=== PATIENT | male | born 1990 | race Caucasian/White ===

== ENCOUNTER 2025-07-09 18:36 | Emergency (ER) | payer BC, SELFPAY ==
--- OUTSIDE RECORDS SUMMARY | 2025-07-08 14:30 | XMS_ITS | Encounter Summary ---
Author Organization [place] [address] Care Team Providers Care Data Warehousing Architect Name Role Phone Chris Rawls DO Primary Care Provider [phone] Reason for Referral * Ultrasound (Emergency) - Closed Specialty Diagnoses / Procedures Referred By Ana davenport Referred To Contact Radiology Diagnoses Scrotal swelling Procedures US SCROTUM AND TESTICLES Chris Rawls DO [address] [place] [address] Phone: tel: fax: Referral ID Status Reason Start Date Expiration Date Visits Re quested Visits Authorized [id number] Closed 07/08/2025 07/08/2026 1 1 Reason for Visit * Reason Comments Groin Swelling Encounter Details Date Type Department Care Team (Late st Contact Info) Description 07/08/2025 2:30 PM EDT Office Visit [facility] [address] [place] [address] Chris Rawls DO [address] [place] [phone] Scrotal swelling (Primary Dx); Pain of left thigh; Screening for cholesterol level; Screening for diabetes mellitus (DM); Annual physical exam; Chronic bilateral low back pain without sciatica Social History Tobacco Use Types Packs/Day Years Used Date Smoking Tobacco: Every Day Smokeless Tobacco: Never Tobacco Cessation:Ready to Q uit: No; Counseling Given: Not Answered Comments:Vape Passive Exposure Comments:Vape PHQ-2 Answer Date Recorded PHQ-2 Total Score 0 04/12/2025 Sex and Gender Information Value Date Recorded Sex Assigned at Not on file Legal Sex Male 3:27 PM EDT Gender Identity Not on file Sexual Orientation Not on file documented as of this encounter Last Filed Vital Signs Vital Sign Reading Time Taken Comments Blood Pressure 128/66 07/08/2025 2:57 PM EDT Pulse - - Temperature - - Respiratory Rate - - Oxygen Saturation - - Inhaled Oxygen Concentration - - Weight 95.3 kg (210 lb) 07/08/2025 2:57 PM EDT Height 177.8 cm (5' 10 ) 07/08/2025 2:57 PM EDT Body Mass Index 30.13 07/08/2025 2:57 PM EDT documented in this encounter Functional Status * Is the person deaf or does he/she have serious difficulty hearing? Answer Date of Assessment Author No 04/12/2025 8:18 AM Carline Herrmann MA * Is the person blind or does he/she have serious difficulty seeing even when wearing glasses? Answer Date of Assessment Author No 04/12/2025 8:18 AM EDCarline Schwarz MA * Does this person have serious difficulty walking or climbing stairs? Answer Date of Assessment Author No 04/12/2025 8:18 AM Carline Herrmann MA * Does this person have difficulty dressing or bathing? Answer Date of Assessment Author No 04/12/2025 8:18 AM Carline Herrmann MA * Because of a physical, mental or emotional condition, does this person have difficulty doing errands alone such as visiting a doctor's office or shopping? Answer Date of Assessment Author No 04/12/2025 8:18 AM Carline Herrmann MA documented as of this encounter Mental Status * Because of a physical, mental or emotional condition, does this person have serious difficulty concentrating, remembering or making decisions? Answer Entry Date Author No 04/12/2025 8:18 AM Carline Herrmann MA documented in this encounter Ordered Prescriptions Prescription Sig Dispense Quantity Refills Last Filled Start Date End Date methylPREDNISolon e (MEDROL DOSPACK) 4 mg Oral Tablets, Dose PackIndications:P ain of left thigh See package instructions 21 Tablet 07/08/2025 documented in this encounter Progress Notes * Chris Rawls DO - 07/08/2025 2:30 PM EDT Vitals: 07/08/25 1457 Weight: 210 lb (95.3 kg) Height: 5' 10 (1.778 m) Body mass index is 30.13 kg/m??. SUBJECTIVE: Chief Complaint Patient presents with Groin Swelling HPI: Patient states I noticed swelling in groin area and leg swelling 4 days ago. Denies pain. No obvious trauma Also presents for left thigh pain. No obvious trauma I have recommended that this patient have a flu shot and immunization for all vaccines but he declines at this time. I have discussed the risks and benefits of this examination with him. The patient verbalizes understanding. Review of Systems Constitutional: Negative for fatigue and fever. Respiratory: Negative for cough and shortness of breath. Cardiovascular: Negative for chest pain. Gastrointestinal: Negative for abdominal pain, diarrhea, nausea and vomiting. Genitourinary: Negative for dysuria. Musculoskeletal: Negative for back pain. Skin: Negative for rash. Neurological: Negative for headaches. Psychiatric/Behavioral: The patient is not nervous/anxious. OBJECTIVE: Physical Exam Constitutional: Appearance: Normal appearance. Cardiovascular: Rate and Rhythm: Normal rate and regular rhythm. Heart sounds: Normal heart sounds. No murmur heard. Pulmonary: Effort: Pulmonary effort is normal. No respiratory distress. Breath sounds: Normal breath sounds. Abdominal: General: There is no distension. Palpations: Abdomen is soft. Genitourinary: Comments: Swelling noted to right side of scrotum Neurological: Mental Status: He is alert and oriented to person, place, and time. Psychiatric: Mood and Affect: Mood normal. Behavior: Behavior normal. Assessment & Plan Scrotal swelling Orders: US SCROTUM AND TESTICLES; Future Pain of left thigh Orders: methylPREDNISolone (MEDROL DOSPACK) 4 mg Oral Tablets, Dose Pack; See package instructions Above problems were discussed with patient and all are stable except otherwise noted. Continue medications as prior. Refills done as requested. Blood work done. Will adjust medications by phone as needed based on lab results and as noted. Follow up for any changes and as directed Educated patient regarding the care plan and instructions listed on the After Visit Summary [AVS] for today's visit. The patient verbalized full understanding of the care plan and instructions given on the AVS for today's visit. documented in this encounter Miscellaneous Notes * Addendum Note - Chris Rawls DO - 07/08/2025 2:30 PM EDTAddended by: CHRIS RAWLS on: 07/08/2025 03:34 PM Modules accepted: Orders documented in this encounter Plan of Treatment Not on file documented as of this encounter Goals Goal Patient Goal Type Associated Problems Recent Progress Patient-Stated? Author Maintain a healthy diet, exercise regularly and maintain an ideal body weight General No Cici Bee RMA Stay Tobacco Free Lifestyle No Chris Rawls DO documented as of this encounter Procedures Procedure Name Priority Date/Time Associated Diagnosis Comments BILIRUBIN DIRECT Routine 07/08/2025 3:43 PM EDT Screening for cholesterol level VITAMIN B12/ FOLIC ACID Routine 07/08/2025 3:43 PM EDT Annual physical exam Chronic bilateral low back pain without sciatica TSH REFLEX TO FT4 Routine 07/08/2025 3:4 3 PM EDT Annual physical exam Chronic bilateral low back pain without sciatica VITAMIN D 25 HYDROXY Routine 07/08/2025 3:43 PM EDT Annual physical exam Chronic bilateral low back pain without sciatica CBC WITH DIFF Routine 07/08/2025 3:43 PM EDT Annual physical exam Chronic bilateral low back pain without sciatica HEMOGLOBIN A1C Routine 07/08/2025 3:43 PM EDT Annual physical exam Chronic bilateral low back pain without sciatica LIPID SCREEN Routine 07/08/2025 3:43 PM EDT Annual physical exam Chronic bilateral low back pain without sciatica COMPREHENSIVE METABOLIC PANEL Routine 07/08/2025 3:43 PM EDT Annual physical exam Chronic bilateral low back pain without sciatica documented in this encounter Results * US SCROTUM AND TESTICLES (07/08/2025 4:55 PM EDT) Anatomical Region Laterality Modality Testes Ultrasound 07/08/2025 4:55 PM EDT Impressions 07/08/2025 5:22 PM EDT Mild scrotal wall thickening/edema nonspecific. - Note: Radiology results need to be interpreted within a comprehensive clinical context. If you have questions about the radiology report, please contact the office of the ordering clinician. Narrative 07/08/2025 5:22 PM EDT US SCROTUM AND TESTICLES: 07/08/2025 4:55 PM CLINICAL HISTORY: N50.89-Other specified disorders of the male genital [id number]. COMPARISON: None. PROCEDURE COMMENTS: Routine sonographic evaluation of the scrotum and testicles with access representative images acquired and sent to PACS along with appliance adjuster notes for radiologist review. FINDINGS: Epididymes: Normal size and morphology. No hyperemia. Right testicle measures 4.3 x 2.8 x 2.4 cm. Normal echotexture. Left testicle measures 4.2 x 3.1 x 2.1 cm. Normal echotexture. Doppler signal: Both testicles show normal Doppler flow characteristics. Hydrocele: None. Varicocele: None. Mild scrotal wall edema. This is slightly hyperemic. Procedure Note Marco Antonio Delgado MD - 07/08/2025 US SCROTUM AND TESTICLES: 07/08/2025 4:55 PM CLINICAL HISTORY: N50.89-Other specified disorders of the male genital [id number]. COMPARISON: None. PROCEDURE COMMENTS: Routine sonographic evaluation of the scrotum andtesticles with access representative images acquired and sent to PACS along withsonographer notes for radiologist review. FINDINGS: Epididymes: Normal size and morphology. No hyperemia. Right testicle measures 4.3 x 2.8 x 2.4 cm. Normal echotexture. Left testicle measures 4.2 x 3.1 x 2.1 cm. Normal echotexture. Doppler signal: Both testicles show normal Doppler flow characteristics. Hydrocele: None. Varicocele: None. Mild scrotal wall edema. This is slightly hyperemic. IMPRESSION: Mild scrotal wall thickening/edema nonspecific. - Note: Radiology results need to be interpreted within a comprehensiveclinical context. If you have questions about the radiology report, please contactthe office of the ordering clinician. [facility] DO IMG US ORDERABLES Final Result * BILIRUBIN DIRECT (07/08/2025 3:43 PM EDT) Pathologist [facility] Bili Direct <0.2 0.0 - 0.3 mg/dL 07/08/2025 8:23 PM EDT [facility] Blood VENOUS BLOOD / Unknown Venipuncture / Unknown 07/08/2025 3:43 PM EDT 07/08/2025 3:43 PM EDT Result [facility] CHEMISTRY ORDERABLES Final Resu lt Performing Organization Address [facility] de Phone Number [facility] [address] [place] [address] , [place] [address] * VITAMIN D 25 HYDROXY (07/08/2025 3:43 PM EDT) Pathologist [facility] Vit D 25 OH 41.0 30.0 - 150.0 ng/mL 07/08/2025 9:27 PM EDT [facility] Comment: Preferred: >= 30 ng/mL Insufficient: 21-29 ng/mL Deficient <= 20 ng/mL Possible Toxicity: >150 ng/mL Samples should not be taken from patients receiving therapy with high biotin doses (i.e. > 5 mg/day) until at least 8 hours following the last biotin administration. Blood VENOUS BLOOD / Unknown Venipuncture / Unknown 07/08/2025 3:43 PM EDT 07/08/2025 3:43 PM EDT Result [facility] Amie Culp MD CHEMISTRY ORDERABLES Final Res ult Performing Organization Address [facility] Co de Phone Number [facility] [address] [place] [address] , [place] [address] * VITAMIN B12/ FOLIC ACID (07/08/2025 3:43 PM EDT) Vitamin B12 554 232 - 1,245 pg/mL 07/08/2025 9:27 PM EDT [facility] Folate 9.20 >=4.50 ng/mL 07/08/2025 9:27 PM EDT [facility] Blood VENOUS BLOOD / Unknown Venipuncture / Unknown 07/08/2025 3:43 PM EDT 07/08/2025 3:43 PM EDT Narrative [id number] - 07/08/2025 9:27 PM EDT Ingestion of lubna doses of biotin (>5 mg/day) taken within 8 hours of drawing blood sample can interfere with this immunoassay test. us Amie Culp MD CHEMISTRY ORDERABLES Final Res ult Performing Organization Address [facility] Co de Phone Number [id number] , [place] [address] * TSH REFLEX TO FT4 (07/08/2025 3:43 PM EDT) Pathologist [facility] TSH Reflex 0.861 0.270 - 4.200 mcIU/mL 07/08/2025 10:15 PM EDT [id number] Blood VENOUS BLOOD / Unknown Venipuncture / Unknown 07/08/2025 3:43 PM EDT 07/08/2025 3:43 PM EDT [id number] - 07/08/2025 10:15 PM EDT Ingestion of lubna doses of biotin (>5 mg/day) taken within 8 hours of drawing blood sample can interfere with this immunoassay test. us Amie Culp MD CHEMISTRY ORDERABLES Final Res ult Performing Organization Address [facility] Co de Phone Number [facility] , [place] [address] * (ABNORMAL) LIPID SCREEN (07/08/2025 3:43 PM EDT) Cholesterol 177 <200 mg/dL 07/08/2025 8:23 PM EDT [facility] [employer] [facility] Comment: < 200 Desirable 200 - 239 Borderline High >= 240 High Triglyceride 232(H) <150 mg/dL 07/08/2025 8:23 PM EDT [facility] [employer] [facility] Comment: < 150 Normal 150 - 199 Borderline High 200 - 499 High >= 500 Very High HDL 26(L) >=40 mg/dL 07/08/2025 8:23 PM EDT [facility] [employer] [facility] Comment: > 60 Optimal 40 - 60 Acceptable < 40 Low LDL Calculated 110(H) <100 mg/dL 07/08/2025 8:23 PM EDT [facility] [employer] [facility] Comment: < 100 Optimal 100 - 129 Near or above optimal 130 - 159 Borderline High 160 - 189 High >= 190 Very High The National Institutes of Health (NIH) equation is used for all lipid panels that report calculated LDL (LDL-C). Non-HDL-C Calculated 151(H) <=129 mg/dL 07/08/2025 8:23 PM EDT [facility] [employer] [facility] Comment: <130 Desirable 130-159 Above Desirable 160-189 Borderline High 190-219 High >= 220 Very High Fasting Specimen? No None 025 8:23 PM EDT [facility] Blood VENOUS BLOOD / Unknown Venipuncture / Unknown 07/08/2025 3:43 PM EDT 07/08/2025 3:43 PM EDT us Amie Cupl MD CHEMISTRY ORDERABLES Final Res ult [facility] [employer] [facility] [address] , [address] [place] [id number] * (ABNORMAL) HEMOGLOBIN A1C (07/08/2025 3:43 PM EDT) Hgb A1C 5.7(H) 4.2 - 5.6 % 07/08/2025 8:10 PM EDT [facility] [employer] [facility] Est. Avg Glucose 117 mg/dL 07/08/2025 8:10 PM EDT [facility] [employer] [facility] Blood VENOUS BLOOD / Unknown Venipuncture / Unknown 07/08/2025 3:43 PM EDT 07/08/2025 3:43 PM EDT Narrative [facility] - 07/08/2025 8:10 PM EDT REFERENCE RANGE: Normal: 4.0-5.6% Pre-diabetes: 5.7-6.4% Provisional diagnosis of diabetes: >6.4% Hgb F>10% and anything which shortens red cell survival, such as hemolytic anemia, or unstable hemoglobin variants such as HbSS, HbSC, or HbCC, will lower the HbA1c value associated with a given level of glycemic control. us Amie Culp MD CHEMISTRY ORDERABLES Final Res ult [facility], [facility] [address] , [address] [place] [id number] * (ABNORMAL) COMPREHENSIVE METABOLIC PANEL (07/08/2025 3:43 PM EDT) Sodium 139 136 - 145 mmol/L 07/08/2025 8:23 PM EDT [facility] Potassium 4.3 3.5 - 5.0 mmol/L 07/08/2025 8:23 PM EDT [facility] Chloride 102 98 - 107 mmol/L 07/08/2025 8:23 PM EDT [facility] Total CO2 25 22 - 29 mmol/L 07/08/2025 8:23 PM EDT [facility] Anion Gap 12 7 - 16 mmol/L 07/08/2025 8:23 PM EDT [facility] Calcium 10.2 8.6 - 10.4 mg/dL 07/08/2025 8:23 PM EDT [facility] Glucose Lvl 97 70 - 99 mg/dL 07/08/2025 8:23 PM EDT [facility] BUN 19 6 - 20 mg/dL 07/08/2025 8:23 PM EDT [facility] Creatinine 1.49(H) 0.67 - 1.30 mg/dL 07/08/2025 8:23 PM EDT [facility] Albumin 4.1 3.5 - 5.2 gm/dL 07/08/2025 8:23 PM EDT [facility] Total Protein 7.4 6.4 - 8.3 gm/dL 07/08/2025 8:23 PM EDT [facility] Bili Total 0.4 0.2 - 1.4 mg/dL 07/08/2025 8:23 PM EDT [facility] ALT 13 <=41 U/L 07/08/2025 8:23 PM EDT [facility] AST 14 <=40 U/L 07/08/2025 8:23 PM EDT [facility] Alk Phos 87 40 - 129 U/L 07/08/2025 8:23 PM EDT [facility] eGFR (CKD-EPIcr 2020) 62 >=60 mL/min/1.7 3 m2 07/08/2025 8:23 PM EDT [facility] Comment:Estimated GFR was ca lculated using the CKD-EPIcr (2020) equation refit without race. The equation is recommended by the National Kidney Foundation - [place] [employer] Neph[employer] Task Force. Blood VENOUS BLOOD / Unknown Venipuncture / Unknown 07/08/2025 3:43 PM EDT 07/08/2025 3:43 PM EDT us Amie Culp MD CHEMISTRY ORDERABLES Final Res ult [facility] [address] , [address] [place] [phone] * (ABNORMAL) CBC WITH DIFF (07/08/2025 3:43 PM EDT) WBC 11.5(H) 3.7 - 10.3 x10(3)/mcL 07/08/2025 7:50 PM EDT [facility] RBC 5.67 4.60 - 6.10 x10(6)/mcL 07/08/2025 7:50 PM EDT [facility] Hgb 15.5 13.7 - 17.5 g/dL 07/08/2025 7:50 PM EDT [facility] Hct 48.6 40.0 - 51.0 % 07/08/2025 7:50 PM EDT [facility] MCV 85.7 80.0 - 100.0 fL 07/08/2025 7:50 PM EDT [facility] MCH 27.3 26.0 - 34.0 pg 07/08/2025 7:50 PM EDT [facility] MCHC 31.9 30.7 - 35.5 g/dL 07/08/2025 7:50 PM EDT [facility] RDW 13.2 <=14.9 % 07/08/2025 7:50 PM EDT [facility] Platelet 250 155 - 369 x10(3)/mcL 07/08/2025 7:50 PM EDT [facility] MPV 10.2 8.8 - 12.5 fL 07/08/2025 7:50 PM EDT [facility] Neut Percent 67.1 % 07/08/2025 7:50 PM EDT [facility] Comment:Neutrophils equals s egs plus bands Imm Gran% 1.0 % 07/08/2025 7:50 PM EDT [facility] Comment:Automated count of m etamyelocytes, myelocytes and promyelocytes. Lymph Percent 18.9 % 07/08/2025 7:50 PM EDT [facility] Slope Percent 3.8 % 07/08/2025 7:50 PM EDT [facility] Eos Percent 8.9 % 07/08/2025 7:50 PM EDT [facility] Baso Percent 0.3 % 07/08/2025 7:50 PM EDT [facility] Neut # 7.7(H) 1.6 - 6.1 x10(3)/mcL 07/08/2025 7:50 PM EDT [facility] Comment:Neutrophils equals s egs plus bands IMMGRAN# 0.1 0.0 - 0.1 x10(3)/mcL 07/08/2025 7:50 PM EDT [facility] Comment:Automated count of m etamyelocytes, myelocytes and promyelocytes. An absolute IG <0.1 is reported as 0.0. Lymph # 2.2 1.2 - 3.9 x10(3)/mcL 07/08/2025 7:50 PM EDT [facility] Slope # 0.4 0.3 - 0.9 x10(3)/mcL 07/08/2025 7:50 PM EDT [facility] Eos# 1.0(H) 0.0 - 0.5 x10(3)/mcL 07/08/2025 7:50 PM EDT [facility] Baso # 0.0 0.0 - 0.1 x10(3)/mcL 07/08/2025 7:50 PM EDT [facility] Blood VENOUS BLOOD / Unknown Venipuncture / Unknown 07/08/2025 3:43 PM EDT 07/08/2025 3:43 PM EDT us Amie Culp MD HEMATOLOGY ORDERABLES Final Re sult [facility] [address] [facility] [address] , [place] [address] documented in this encounter Visit Diagnoses Diagnosis Scrotal swelling- Primary Edema of male genital organs Pain of left thigh Pain in limb Screening for cholesterol level Screening for lipoid disorders Screening for diabetes mellitus (DM) Screening for diabetes mellitus Annual physical exam Routine general medical examination at a health care facility Chronic bilateral low back pain without sciatica Scrotal swelling Edema of male genital organs documented in this encounter Orders Lab Orders Without Results Count Last Ordered D ate First Ordered Date BASIC METABOLIC PANEL 1 07/08/2025 HEMOGLOBIN A1C 1 07/08/2025 HEPATIC FUNCTION PANEL 1 07/08/2025 LIPID SCREEN 1 07/08/2025 documented in this encounter Care Teams Data Warehousing Architect Relationship Specialty Start Date End Date Chris Rawls DO [address] [place] [address] PCP - General Family Medicine 02/16/24 documented as of this encounter
--- OUTSIDE RECORDS SUMMARY | 2025-07-08 16:12 | XMS_ITS | Encounter Summary ---
Author Organization [place] [address] Care Team Providers Care Rn Trauma Name Role Phone Chris Rawls DO Primary Care Provider [phone] Reason for Referral * Ultrasound (Emergency) - Closed Specialty Diagnoses / Procedures Referred By Ana davenport Referred To Contact Radiology Diagnoses Scrotal swelling Procedures US SCROTUM AND TESTICLES Chris Rawls DO [address] [place] [address] Phone: tel: fax: Referral ID Status Reason Start Date Expiration Date Visits Re quested Visits Authorized [id number] Closed 07/08/2025 07/08/2026 1 1 Reason for Visit * Ultrasound (Emergency) - Closed Specialty Diagnoses / Procedures Referred By Ana davenport Referred To Contact Radiology Diagnoses Scrotal swelling Procedures US SCROTUM AND TESTICLES Chris Rawls DO [address] [place] [address] Phone: tel: fax: Referral ID Status Reason Start Date Expiration Date Visits Re quested Visits Authorized [id number] Closed 07/08/2025 07/08/2026 1 1 Encounter Details Date Type Department Care Team (Charline st Contact Info) Description 07/08/2025 4:12 PM EDT - 07/08/2025 11:59 PM EDT Hospital Encounter [facility] Ultrasound [address] [place] [address] Chris Rawls DO [address] [place] [id number] Scrotal swelling Discharge Disposition: Home or Self Care Social History Tobacco Use Types Packs/Day Years Used Date Smoking Tobacco: Every Day Smokeless Tobacco: Never Comments:Vape Passive Exposure Comments:Vape PHQ-2 Answer Date Recorded PHQ-2 Total Score 0 04/12/2025 Sex and Gender Information Value Date Recorded Sex Assigned at Not on file Legal Sex Male 3:27 PM EDT Gender Identity Not on file Sexual Orientation Not on file documented as of this encounter Functional Status * Is the person deaf or does he/she have serious difficulty hearing? Answer Date of Assessment Author No 04/12/2025 8:18 AM EDT Carline Garcia MA * Is the person blind or does he/she have serious difficulty seeing even when wearing glasses? Answer Date of Assessment Author No 04/12/2025 8:18 AM TATIANAT Carline Garcia MA * Does this person have serious difficulty walking or climbing stairs? Answer Date of Assessment Author No 04/12/2025 8:18 AM Carline Herrmann MA * Does this person have difficulty dressing or bathing? Answer Date of Assessment Author No 04/12/2025 8:18 AM EDT Robert Garcia MA * Because of a physical, mental [...] Carline Herrmann MA documented in this encounter Medications at Time of Discharge methylPREDNISolo ne (MEDROL DOSPACK) 4 mg Oral Tablets, Dose PackIndications: Pain of left thigh See package instructions 21 Tablet 07/08/2025 documented as of this encounter Discharge Disposition Disposition Code Departure Means Destination Home or Self Care documented in this encounter Plan of Treatment Not on file documented as of this encounter Goals Goal Patient Goal Type Associated Problems Recent Progress Patient-Stated? Author Maintain a healthy diet, exercise regularly and maintain an ideal body weight General No Cici Bee RMA Stay Tobacco Free Lifestyle No Curly, Chris, DO documented as of this encounter Procedures Procedure Name Priority Date/Time Associated Diagnosis Comments US SCROTUM AND TESTICLES STAT 07/08/2025 4:55 PM EDT Scrotal swelling documented in this encounter Results * US [...] N50.89-Other specified disorders of the male genital [id number]. COMPARISON: None. PROCEDURE COMMENTS: Routine sonographic evaluation of the scrotum and testicles with front desk representative images acquired and sent to PACS along with marketing reps sports and entertainment notes for radiologist review. FINDINGS: Epididymes: Normal [...] N50.89-Other specified disorders of the male genital [id number]. COMPARISON: None. PROCEDURE COMMENTS: Routine sonographic evaluation of the scrotum andtesticles with front desk representative images acquired and sent to PACS [...] please contactthe office of the ordering clinician. Chris Rawls DO [facility] US ORDERABLES Final Result documented in this encounter Visit Diagnoses Diagnosis Scrotal swelling Edema of male genital organs documented in this encounter Care Teams Rn Trauma Relationship Specialty Start Date End Date Chris Rawls DO [address] [place] [address] PCP - General Family Medicine 02/16/24 documented as of this encounter
[2025-07-09] VITALS (12 sets, daily range): BP systolic 127–148; BP diastolic 75–86; PULSE 75–103; RESP 15–16; TEMP 36.8; O2SAT 95–99; BMI 31.0
--- NOTE | 2025-07-09 18:57 | ED_ITS ---
Discharge Plan Disposition Patient Disposition: Home, Self-Care Condition: Good Prescriptions Prescriptions: No Action No Known Home Medications Referrals Follow up/Referrals: Law Shannon MD [Primary Care Provider, Medical] - See instructions Jameel Oliveros MD [Referring, Urology] - See instructions Activity Restrictions/Add. Instructions Additional Instructions/Restrictions: You have some fluid around your testicles. You should follow-up with urology. Wear tight fitting underwear for the next couple days. We have sent you a work note for the next couple days. Watch for any signs of infection including significant redness tightness of your testicles or any severe drainage. Otherwise continue the steroids take Tylenol Motrin as needed. I have sent you with a referral to urology as needed, call them to schedule an appointment if your symptoms do not resolve. Clinical Impressions Clinical Impression: Acute hydrocele, Varicocele Stand Alone Forms Stand Alone Forms: Work/School Release Instructions Patient Instructions: DI for Hydrocele-Adult Print Language Print Language: Lao Discharge ED Provider: Laure Mak General Adult HPI General Chief complaint: Urogenital-Male Stated complaint: swollen groin,meds did not help Time Seen by Provider: 07/09/25 18:46 Mode of Arrival: Ambulatory Source of Information: Patient Description of Symptoms (Recalled from ER Triage Doc. by RN): patient presents to the ED for a swollen scrotum. Patient stated he went to [facility] on monday and had it evaluated but they sent him home and told him to watch it. he went to his primary care yesterday and has an ultrasound done and labwork but everything was reportedly fine . The patient states it more swollen now that it has been. he does not endorse any trouble urinating. patient states its just sensitive and uncomfortable, no current pain. History of Present Illness HPI narrative: Patient is an otherwise healthy 35-year-old male who presented to the emergency department with scrotal swelling and pain. Patient states that this started about 5 days ago. Patient states that he was bit by a tick on his scrotum. Patient states that he was then seen by an urgent care center on Monday and was sent home and patient was then seen by his primary care provider yesterday where an ultrasound was done and lab work patient was sent home with steroids. Patient states that his scrotum has gotten more swollen today but has not developed any erythema. Patient does report some intermittent pain. Patient denies any urinary symptoms. Patient denies any discharge. Patient states that he is today and had some increased discomfort afterwards. Denies any fevers or other systemic symptoms. Patient does not take any daily medications. Patient denies any prior surgeries. Related Data Home Medications ?Medication ?Instructions ?Recorded ?Confirmed No Known Home Medications 07/06/25 090 05/23 Allergies Allergy/AdvReac Type Severity Reaction Status Date / Time No Known Allergies Allergy Verified 07/06/25 15:52 [facility] Disclaimer: The information contained in this section may have been updated after the patient was seen, as this information can be updated by other users. Social History (Updated 07/06/25 @ 15:52 by SARI Mcginnis) Smoking Status: Never smoker alcohol intake: never current occupational status: employed Travel in the last 8 weeks?: None Have you lived/traveled outside US in past 30 days?: No Contact w/someone who lives/traveled outside US past 30 days?: No Exposure to someone with infectious disease in past 14 days?: No Do you have a fever (greater than 100.4 F or 38 C)?: No Have you tested positive for COVID-19?: No Exposed to someone with COVID-19 in past 14 days?: No Do you have a sore throat?: No Do you have a cough?: No Do you have any weakness?: No Do you have any diarrhea?: No Are you experiencing any unusual bleeding?: No Do you have any muscle aches/pain?: No Do you have any abdominal pain?: No Are you experiencing loss of taste or smell?: No ROS Obtained: Yes All systems reviewed & no additional complaints except as documented and Yes Systems reviewed as appropriate & no additional complaints except as documented Physical Exam General General appearance: alert and in no apparent distress Head Head exam: atraumatic, normocephalic and normal inspection Eye Eye exam: Present normal appearance, PERRL and EOMI; Absent scleral icterus ENT ENT exam: Present normal exam and normal external ear exam Neck Neck exam: Present normal inspection and full ROM Chest Chest inspection: Present normal inspection and symmetric chest wall rise Respiratory Respiratory exam: Present normal lung sounds bilaterally; Absent respiratory distress or wheezes Cardiovascular Cardiovascular exam: Present regular rate, normal rhythm and normal heart sounds Abdominal Exam Abdominal exam: Present soft and distention; Absent tenderness, guarding or rebound exam: Present scrotal swelling and other (Bilateral scrotal swelling with no erythema, mild tenderness to palpation, normal lie, normal circumcised penis) Extremities Exam Extremities exam: Present normal inspection and full ROM Back Exam Back exam: Present normal inspection and full ROM Neurological Exam Neurological exam: Present alert and oriented X3 Psychiatric Psychiatric exam: Present normal affect and normal mood Skin Skin exam: Present warm and dry Medical Decision Making Medical Records Medical records reviewed: Yes I reviewed the patient's medical records. Screening: Per USPSTF and CDC recommendations, given the prevalence of disease in our region, it is our hospital?s policy to screen for HIV and viral Hepatitis for all patients aged 18 and over and those with ongoing risk factors. Vicente Inquiry Pt receiving controlled substance: No Vital Signs: 07/09/25 18:41 07/09/25 19:00 07/09/25 19:00 Temperature 98.2 F Temperature Source Oral Pulse Rate 90 Pulse Rate [Right Radial] 91 H Respiratory Rate 15 Blood Pressure 138/85 Blood Pressure [Right Arm] 148/84 H Blood Pressure Mean 92 Blood Pressure Mean [Right Arm] 105 Blood Pressure Source Blood Pressure Source [Right Arm] Automatic Cuff Blood Pressure Position Blood Pressure Position [Right Arm] Sitting 02 Sat by Pulse Oximetry 98 95 Oxygen Delivery Method Room Air 07/09/25 19:20 07/09/25 19:20 07/09/25 19:30 Temperature Temperature Source Pulse Rate 103 H 89 Pulse Rate [Right Radial] Respiratory Rate Blood Pressure 127/75 Blood Pressure [Right Arm] Blood Pressure Mean 86 Blood Pressure Mean [Right Arm] Blood Pressure Source Blood Pressure Source [Right Arm] Blood Pressure Position Blood Pressure Position [Right Arm] 02 Sat by Pulse Oximetry 99 95 Oxygen Delivery Method 07/09/25 19:40 07/09/25 20:00 07/09/25 20:00 Temperature Temperature Source Pulse Rate 85 Pulse Rate [Right Radial] Respiratory Rate Blood Pressure 129/76 138/83 Blood Pressure [Right Arm] Blood Pressure Mean 87 96 Blood Pressure Mean [Right Arm] Blood Pressure Source Blood Pressure Source [Right Arm] Blood Pressure Position Blood Pressure Position [Right Arm] 02 Sat by Pulse Oximetry 97 Oxygen Delivery Method 07/09/25 21:28 07/09/25 21:29 07/09/25 21:30 Temperature Temperature Source Pulse Rate 75 76 Pulse Rate [Right Radial] Respiratory Rate Blood Pressure 140/86 Blood Pressure [Right Arm] Blood Pressure Mean 101 Blood Pressure Mean [Right Arm] Blood Pressure Source Blood Pressure Source [Right Arm] Blood Pressure Position Blood Pressure Position [Right Arm] 02 Sat by Pulse Oximetry 98 96 Oxygen Delivery Method 07/09/25 21:40 07/09/25 21:40 07/09/25 21:45 Temperature Temperature Source Pulse Rate 79 78 Pulse Rate [Right Radial] Respiratory Rate Blood Pressure 137/86 Blood Pressure [Right Arm] Blood Pressure Mean 99 Blood Pressure Mean [Right Arm] Blood Pressure Source Blood Pressure Source [Right Arm] Blood Pressure Position Blood Pressure Position [Right Arm] 02 Sat by Pulse Oximetry 95 95 Oxygen Delivery Method 07/09/25 21:56 Temperature 98.2 F Temperature Source Pulse Rate 79 Pulse Rate [Right Radial] Respiratory Rate 16 Blood Pressure 137/86 Blood Pressure [Right Arm] Blood Pressure Mean Blood Pressure Mean [Right Arm] Blood Pressure Source Automatic Cuff Blood Pressure Source [Right Arm] Blood Pressure Position Sitting Blood Pressure Position [Right Arm] 02 Sat by Pulse Oximetry Oxygen Delivery Method Room Air Lab Data Lab results reviewed: Yes I reviewed the patient's lab results. Lab Results 07/09/25 18:53: Urine Color Yellow, Urine Appearance Clear, Urine pH 7.5, Ur Specific [place] 1.020, Urine Protein Negative, Urine Glucose (UA) Negative, Urine Ketones Negative, Urine Blood Negative, Urine Nitrate Negative, Urine Bilirubin Negative, Urine Urobilinogen 0.2, Ur Leukocyte Esterase Negative, Urine RBC None, Urine WBC None, Ur Squamous Epith Cells None, Urine Bacteria Trace 07/09/25 20:05: WBC 14.3 H, RBC 5.47, Hgb 15.5, Hct 45.8, MCV 83.7, MCH 28.3, MCHC 33.8, RDW 12.9, Plt Count 249, MPV 9.7, Neut % (Auto) 80.7 H, Lymph % (Auto) 9.4 L, Mckenzie % (Auto) 1.1 L, Eos % (Auto) 7.5, Baso % (Auto) 0.2, Neut # (Auto) 11.6 H, Lymph # (Auto) 1.4, Mckenzie # (Auto) 0.2, Eos # (Auto) 1.1 H, Baso # (Auto) 0.0, Sodium 137, Potassium 4.5, Chloride 105, Carbon Dioxide 23, Anion Gap 13.5, BUN 22 H, Creatinine 1.30 H, Estimated Creat Clear 105, Estimated GFR 62, Est GFR ( Amer) 75, Glucose 150 H, Calcium 9.7, Total Bilirubin 0.4, AST 26, ALT 18, Alkaline Phosphatase 79, Total Protein 7.9, Albumin 4.6, G lobulin 3.3 H, Albumin/Globulin Ratio 1.4 07/09/25 20:05 07/09/25 20:05 Orders (Tests/Meds): ORDERS Category Date Time Status POCUS Point of Care (ER Only) Stat Exams 07/09/25 19:47 Completed CBC w/Auto Diff [Complete Blood Count Auto Diff] Stat Lab 07/09/25 20:05 Completed CMP [Comprehensive Metabolic Panel] Stat Lab 07/09/25 20:05 Completed Urinalysis and Microscopic Stat Lab 07/09/25 18:53 Completed Urine Chlam/Gono/Trich ([facility]) Stat Lab 07/09/25 18:53 Received US scrotum [US Testicular] Stat Ultrasound 07/09/25 20:22 Completed Medical Decision Narrative: Patient is an otherwise healthy 35-year-old male who presented to the emergency department with scrotal swelling and pain. On arrival, patient was hemodynamically stable with unremarkable vital signs. Differential includes but not limited to: Epididymitis, orchitis, testicular torsion, swelling secondary to tick bite, summer penile syndrome, hematocele, amongst others Of note, patient states that he had lab work and an ultrasound done with his primary care provider yesterday however unable to obtain any records given that his primary care provider's office is closed. Patient's labs were reviewed and interpreted by myself, patient has a mild leukocytosis, hemoglobin stable. CMP unremarkable. UA showed no evidence of infection. Ultrasound showed bilateral hydroceles and varicoceles with some scrotal wall edema. No evidence of epididymitis or orchitis. At this time, patient was recommended to take Tylenol and Motrin for pain control and continue taking steroids as prescribed. Patient was sent with a referral to urology and patient was discharged home in stable condition. Critical Care Critical Care Time Critical Care Time: No
--- OUTSIDE RECORDS SUMMARY | 2025-07-09 18:57 | XMS_ITS | Encounter Summary ---
Author Organization [facility] [place] [address] Care Team Providers Care Banana Expert Name Role Phone CurlyChris felix Primary Care Provider [phone] Encounter Details Date Type Department Care Team (Late st Contact Info) Description 07/08/2025 Results Follow-Up [facility] [address] [place] [address] Curly Chris [address] [place], [place] [id number] US SCROTUM AND TESTICLES, COMPREHENSIVE METABOLIC PANEL, HEMOGLOBIN A1C, Additional followed-up results: 2 Social History Tobacco Use Types Packs/Day Years [...] 8:18 AM EDT Carline Garcia MA * Does this person have serious difficulty walking or climbing stairs? Answer Date of Assessment Author No 04/12/2025 8:18 AM EDT Carline Garcia MA * Does this person have difficulty [...] Carline Herrmann MA documented in this encounter Plan of Treatment Not on file documented as of this encounter Goals Goal Patient Goal Type Associated Problems Recent Progress Patient-Stated? Author Maintain a healthy diet, exercise regularly and maintain an ideal body weight General No Cici Bee RMA Stay Tobacco Free Lifestyle No Chris Rawls DO documented as of this encounter Visit Diagnoses Not on filedocumented in this encounter Care Teams Banana Expert Relationship Specialty Start Date End Date Chris Rawls DO [address] [place] [address] PCP - General Family Medicine 02/16/24 documented as of this encounter
--- OUTSIDE RECORDS SUMMARY | 2025-07-09 18:57 | XMS_ITS | Clinical Summary ---
Author Organization [facility] Address [address] [place] [address] Phone Care Team Providers Care Planning Official Name Role Phone Chris Rawls DO Primary Care Provider [phone] Allergies No known active allergies Medications methylPREDNISol one (MEDROL DOSPACK) 4 mg Oral Tablets, Dose PackIndications :Pain of left thigh See package instructions 21 Tablet 5 Active Active Problems No known active problems Encounters Date Type Department Care Team Description 07/09/2025 Nurse Triage [facility] Nurse Now [facility] [place] [address] Rachel Mccloud RN 07/08/2025 4:12 PM EDT - 07/08/2025 11:59 PM EDT Hospital Encounter [facility] Ul[facility]ound [address] [place] [address] Chris Rawls DO Scrotal swelling Discharge Disposition: Home or Self Care 07/08/2025 2:30 PM EDT Office Visit [facility] [address] [place] [address] Chris Rawls DO Scrotal swelling (Primary Dx); Pain of left thigh; Screening for cholesterol level; Screening for diabetes mellitus (DM); Annual physical exam; Chronic bilateral low back pain without sciatica 07/08/2025 Results Follow-Up [facility] [address] [place] [address] Chris Rawls DO US SCROTUM AND TESTICLES, COMPREHENSIVE METABOLIC PANEL, HEMOGLOBIN A1C, Additional followed-up results: 2 04/14/2025 Telephone [facility] [address] [place] [address] Chris Rawls, Follow Up (Referral for back pain ) 04/12/2025 8:00 AM EDT Office Visit [facility] [address] [place] [address] Amie Culp MD Annual physical exam (Primary Dx); Chronic bilateral low back pain without sciatica; Worms in stool 04/12/2025 Telephone [facility] [address] [place] [address] Mouna Stock RMA Medication Management from Last 3 Months Social History Tobacco Use Types Packs/Day Years [...] on file Sexual Orientation Not on file Obstetrics History Last Filed Vital Signs Vital Sign Reading Time Taken Comments Blood Pressure 128/66 07/08/2025 2:57 PM EDT Pulse - - Temperature 36.7 C (98 F) 04/12/2025 8:19 AM EDT Respiratory Rate - - Oxygen Saturation - - Inhaled Oxygen Concentration - - Weight 95.3 kg (210 lb) 07/08/2025 2:57 PM EDT Height 177.8 cm (5' 10 ) 07/08/2025 2:57 PM EDT Body Mass Index 30.13 07/08/2025 2:57 PM EDT Plan of Treatment Health Maintenance Due Date Last Done Comments DTaP/TDaP/Td (1 - Tdap) 2007 Hepatitis B Vaccine (1 of 3 - 19+ 3-dose series) 2007 Pneumococcal Vaccine 0-49 (1 of 2 - PCV) 2007 COVID-19 Vaccine (1 - 2023-2 5 season) 2025 Influenza Vaccine (#1) 2025 Annual Wellness Exam 04/12/2026 04/12/2025 Meningococcal B Vaccine Aged Out No l onger eligible based on patient's age to complete this topic Goals Goal Patient Goal Type Associated Problems Recent Progress Patient-Stated? Author Maintain a healthy diet, exercise regularly and maintain an ideal body weight General No Cici Bee RMA Stay Tobacco Free Lifestyle No Curly, Chris, DO Procedures Procedure Name Priority Date/Time Associated Diagnosis Comments US SCROTUM AND TESTICLES STAT 07/08/2025 4:55 PM EDT Scrotal swelling BILIRUBIN DIRECT Routine 07/08/2025 3:43 PM EDT Screening for cholesterol level VITAMIN D 25 HYDROXY Routine 07/08/2025 3:43 PM EDT Annual physical exam Chronic bilateral low back pain without sciatica VITAMIN B12/ FOLIC ACID Routine 07/08/2025 3:43 [...] Chronic bilateral low back pain without sciatica from Last 3 Months Results * US SCROTUM AND TESTICLES (07/08/2025 [...] N50.89-Other specified disorders of the male genital [id number]. COMPARISON: None. PROCEDURE COMMENTS: Routine sonographic evaluation of the scrotum and testicles with small business sales representative images acquired and sent to PACS along with loss control consultant notes for radiologist review. FINDINGS: Epididymes: Normal [...] N50.89-Other specified disorders of the male genital [id number]. COMPARISON: None. PROCEDURE COMMENTS: Routine sonographic evaluation of the scrotum andtesticles with small business sales representative images acquired and sent to PACS [...] please contactthe office of the ordering clinician. us Chris Curly DO IMG US ORDERABLES Final Result * BILIRUBIN DIRECT (07/08/2025 3:43 PM EDT) Bili Direct <0.2 0.0 - 0.3 mg/dL 07/08/2025 8:23 PM EDT [facility] VENOUS BLOOD / Unknown Venipuncture / Unknown 07/08/2025 3:43 PM EDT 07/08/2025 3:43 PM EDT [facility]ly [facility] CHEMISTRY ORDERABLES Final Resu lt [facility] [address] , [place] [address] * VITAMIN B12/ FOLIC ACID (07/08/2025 3:43 PM EDT) Pathologist [facility] Vitamin B12 554 232 - 1,245 pg/mL 07/08/2025 9:27 PM EDT [facility]ED [employer] [employer] Folate 9.20 >=4.50 ng/mL 07/08/2025 9:27 PM EDT [facility] VENOUS BLOOD / Unknown Venipuncture / Unknown 07/08/2025 3:43 PM EDT 07/08/2025 3:43 PM EDT Narrative [facility] - 07/08/2025 9:27 PM EDT Ingestion of lubna doses of biotin (>5 mg/day) taken within 8 hours of drawing blood sample can interfere with this immunoassay test. Amie Culp MD CHEMISTRY ORDERABLES Final Res ult Performing Organization Address City/[facility]/ZIP Co de Phone Number [facility] [address] , [place] [address] * TSH REFLEX TO FT4 (07/08/2025 3:43 PM EDT) TSH Reflex 0.861 0.270 - 4.200 mcIU/mL 07/08/2025 10:15 PM EDT [facility] VENOUS BLOOD / Unknown Venipuncture / Unknown 07/08/2025 3:43 PM EDT 07/08/2025 3:43 PM EDT Narrative [facility] - 07/08/2025 10:15 PM EDT Ingestion of lubna doses of biotin (>5 mg/day) taken within 8 hours of drawing blood sample can interfere with this immunoassay test. Amie Culp MD CHEMISTRY ORDERABLES Final Res ult Performing Organization Address [facility] de Phone Number [facility] [employer] , [place] [address] * VITAMIN D 25 HYDROXY (07/08/2025 3:43 PM EDT) Pathologist [facility] Vit D 25 OH 41.0 30.0 - 150.0 ng/mL 07/08/2025 9:27 PM EDT [facility] Comment: Preferred: >= 30 ng/mL Insufficient: 21-29 ng/mL Deficient <= 20 ng/mL Possible Toxicity: >150 ng/mL Samples should not be taken from patients receiving therapy with high biotin doses (i.e. > 5 mg/day) until at least 8 hours following the last biotin administration. Blood VENOUS BLOOD / Unknown Venipuncture / Unknown 07/08/2025 3:43 PM EDT 07/08/2025 3:43 PM EDT Amie Culp MD CHEMISTRY ORDERABLES Final Res ult Performing Organization Address [facility] Phone Number [facility] [employer] , [place] [address] * (ABNORMAL) CBC WITH DIFF (07/08/2025 3:43 PM EDT) WBC 11.5(H) 3.7 - 10.3 x10(3)/mcL 07/08/2025 7:50 PM EDT [facility] [employer], [facility] RBC 5.67 4.60 - 6.10 x10(6)/mcL 07/08/2025 7:50 PM EDT [facility] [employer], [facility] Hgb 15.5 13.7 - 17.5 g/dL 07/08/2025 7:50 PM EDT [facility] Hct 48.6 40.0 - 51.0 % 07/08/2025 7:50 PM EDT [facility] MCV 85.7 80.0 - 100.0 fL 07/08/2025 7:50 PM EDT [facility] MCH 27.3 26.0 - 34.0 pg 07/08/2025 7:50 PM EDT [facility], [facility] MCHC 31.9 30.7 - 35.5 g/dL 07/08/2025 7:50 PM EDT [facility], [facility] RDW 13.2 <=14.9 % 07/08/2025 7:50 PM EDT [facility], [facility] Platelet 250 155 - 369 x10(3)/mcL 07/08/2025 7:50 PM EDT [facility] MPV 10.2 8.8 - 12.5 fL 07/08/2025 7:50 PM EDT [facility] Neut Percent 67.1 % 07/08/2025 7:50 PM EDT [facility] Comment:Neutrophils equals s egs plus bands Imm Gran% 1.0 % 07/08/2025 7:50 PM EDT [facility] Comment:Automated count of m etamyelocytes, myelocytes and promyelocytes. Lymph Percent 18.9 % 07/08/2025 7:50 PM EDT [facility] Wythe Percent 3.8 % 07/08/2025 7:50 PM EDT [facility] Eos Percent 8.9 % 07/08/2025 7:50 PM EDT [facility] Baso Percent 0.3 % 07/08/2025 7:50 PM EDT [facility] Neut # 7.7(H) 1.6 - 6.1 x10(3)/mcL 07/08/2025 7:50 PM EDT [facility] Comment:Neutrophils equals s egs plus bands IMMGRAN# 0.1 0.0 - 0.1 x10(3)/mcL 07/08/2025 7:50 PM EDT [facility] Comment:Automated count of m etamyelocytes, myelocytes and promyelocytes. An absolute IG <0.1 is reported as 0.0. Lymph # 2.2 1.2 - 3.9 x10(3)/[facility] 07/08/2025 7:50 PM EDT [facility], [facility] Wythe # 0.4 0.3 - 0.9 x10(3)/[facility] 07/08/2025 7:50 PM EDT [facility]REF[facility]ED [facility], [facility] Eos# 1.0(H) 0.0 - 0.5 x10(3)/[facility] 07/08/2025 7:50 PM EDT [facility], [facility] Baso # 0.0 0.0 - 0.1 x10(3)/[facility] 07/08/2025 7:50 PM EDT [facility]REFERRED [facility] Blood VENOUS BLOOD / Unknown Venipuncture / Unknown 07/08/2025 3:43 PM EDT 07/08/2025 3:43 PM EDT us Amie Culp MD HEMATOLOGY ORDERABLES Final Re sult [facility] [address] [facility] , [place] [address] * (ABNORMAL) HEMOGLOBIN A1C (07/08/2025 3:43 PM EDT) [facility] Signature Hgb A1C 5.7(H) 4.2 - 5.6 % 07/08/2025 8:10 PM EDT [facility] [employer], [facility] Est. Avg Glucose 117 mg/dL 07/08/2025 8:10 PM EDT [facility] Blood VENOUS BLOOD / Unknown Venipuncture / Unknown 07/08/2025 3:43 PM EDT 07/08/2025 3:43 PM EDT Narrative [facility] - 07/08/2025 8:10 PM EDT REFERENCE RANGE: [...] ORDERABLES Final Res ult Performing Organization Address City/[facility]/ZIP Co de Phone Number [facility] [address] [facility] , [place] [address] * (ABNORMAL) LIPID SCREEN (07/08/2025 3:43 PM EDT) Cholesterol 177 <200 mg/dL 07/08/2025 8:23 PM EDT [facility] Comment: < 200 Desirable 200 - 239 Borderline High >= 240 High Triglyceride 232(H) <150 mg/dL 07/08/2025 8:23 PM EDT [facility] Comment: < 150 Normal 150 - 199 Borderline High 200 - 499 High >= 500 Very High HDL 26(L) >=40 mg/dL 07/08/2025 8:23 PM EDT [facility] Comment: > 60 Optimal 40 - 60 Acceptable < 40 Low LDL Calculated 110(H) <100 mg/dL 07/08/2025 8:23 PM EDT [facility] Comment: < 100 Optimal 100 - 129 Near or above optimal 130 - 159 Borderline High 160 - 189 High >= 190 Very High The National Institutes of Health (NIH) equation is used for all lipid panels that report calculated LDL (LDL-C). Non-HDL-C Calculated 151(H) <=129 mg/dL 07/08/2025 8:23 PM EDT [facility] Comment: <130 Desirable 130-159 Above Desirable 160-189 Borderline High 190-219 High >= 220 Very High Fasting Specimen? No None 025 8:23 PM EDT [facility] Blood VENOUS BLOOD / Unknown Venipuncture / Unknown 07/08/2025 3:43 PM EDT 07/08/2025 3:43 PM EDT us Amie Culp MD CHEMISTRY ORDERABLES Final Res ult Performing Organization Address City/[facility]/ZIP Co de Phone Number [facility] [address] [facility] [address], [place] [address] * (ABNORMAL) COMPREHENSIVE METABOLIC PANEL (07/08/2025 3:43 [...] 8:23 PM EDT [facility] Bili Total 0.4 0.2 - 1.4 mg/dL 07/08/2025 8:23 PM EDT [facility] ALT 13 <=41 U/L 07/08/2025 8:23 PM EDT [facility] AST 14 <=40 U/L 07/08/2025 8:23 PM EDT [facility] Alk Phos 87 40 - 129 U/L 07/08/2025 8:23 PM EDT [facility] eGFR (CKD-EPIcr 2020) 62 >=60 mL/min/1.7 3 m2 07/08/2025 8:23 PM EDT [facility] Comment:Estimated GFR was ca lculated using the CKD-EPIcr (2020) equation refit without race. The equation is recommended by the National Kidney Foundation - [place] Society of Nephrology Task Force. Blood VENOUS BLOOD / Unknown Venipuncture / Unknown 07/08/2025 3:43 PM EDT 07/08/2025 3:43 PM EDT us Amie Culp MD CHEMISTRY ORDERABLES Final Res ult [facility] [address] [facility] , [place] [address] from Last 3 Months Insurance [employer] Member Subscriber Plan / Payer (Ef fective 2024-Present) Name:Emmanuel Jacinto Relation to Subscriber:Spouse Name:Ivet Pearce Date of :1989 Address: [facility] [place] [address] Payer ID:[id number] (NAIC) Group ID:Not on file Type:Not on file Address: [address] [place] [id number] Care Teams Planning Official Relationship Specialty Start Date End Date Chris Rawls DO [address] [place] [address] PCP - General Family Medicine 02/16/24
--- OUTSIDE RECORDS SUMMARY | 2025-07-09 18:57 | XMS_ITS | Encounter Summary ---
Author Organization [place] [address] Care Team Providers Care Animal Caregiver Name Role Phone Chris Rawls DO Primary Care Provider [phone] Reason for Visit * Reason Onset Date Comments Groin Swelling 07/09/2025 Encounter Details Date Type Department Care Team (Late st Contact Info) Description 07/09/2025 Nurse Triage [facility] Nurse Now [facility] [place] [address] Rachel Mccloud, BERNADETTE Social History Tobacco Use Types Packs/Day Years [...] 8:18 AM EDT Carline Garcia MA * Because of a physical, [...] Carline Herrmann MA documented in this encounter Miscellaneous Notes * Telephone Encounter - Rachel Mccloud RN - 07/09/2025 5:50 PM EDT Nurse Triage Call -Chief Complaint: seen in office yesterday d/t scrotal swelling- was started on ABX- took first dose today- swelling to testicles continues to increase- swelling now in penis- appears to be a ring around the middle of penis down to scrotum. US done yesterday- results- thickening of scrotal wall. Complaints of discomfort to low abdomen- new onset this evening. Able to urinate. Spouse states pt is pale in color. -Reported by: Spouse/Significant Other -Vitals: No vitals obtained on this call -Disposition per protocol: see PCP when office is open. -secure chat sent to rehabilitation worker provider- Per Provider- Please send to ER for evaluation. Thank you- S. Utter -Follow up/Concerns: reviewed care advice. Updated on recommendations per MD. Verbalized understanding. Reason for Disposition All other penis - scrotum symptoms (Exception: Painless rash < 24 hours duration.) Answer Assessment - Initial Assessment Questions 1. SCROTAL SWELLING: What does the scrotum look like? How swollen is it? (mild, moderate severe; compare to other side) Entire scrotum up in to penis 2. LOCATION: Where is the swelling located? Testicles and penis 3. ONSET: When did the swelling start? X5 days 4. PATTERN: Does it come and go, or has it been constant since it started? constant 5. SCROTAL PAIN: Is there any pain? If Yes, ask: How bad is it? (Scale 1-10; or mild, moderate,severe) denies 6. HERNIA: Has a doctor ever told you that you have a hernia? no 7. OTHER SYMPTOMS: Do you have any other symptoms? (e.g., abdomen pain, difficulty passing urine,fever, vomiting) Pale in color, low abdominal discomfort Answer Assessment - Initial Assessment Questions 1. SYMPTOM: What's the main symptom you're concerned about? (e.g., discharge from penis, rash, pain, itching, swelling) *No Answer* 2. LOCATION: Where is the *No Answer* located? *No Answer* 3. ONSET: When did *No Answer* start? *No Answer* 4. PAIN: Is there any pain? If Yes, ask: How bad is it? (Scale 1-10; or mild, moderate, severe) *No Answer* 5. URINE: Any difficulty passing urine? If Yes, ask: When was the last time? denies 6. CAUSE: What do you think is causing the symptoms? *No Answer* 7. OTHER SYMPTOMS: Do you have any other symptoms? (e.g., fever, abdomen pain, blood in urine) *No Answer* Protocols used: Scrotum Xtxumqkx-T-GA, Penis and Scrotum Eeebkqxy-E-IP documented in this encounter Plan of Treatment [...] on filedocumented in this encounter Care Teams Animal Caregiver Relationship Specialty Start Date End Date Chris Rawls DO [address] [place] [address] PCP - General Family Medicine 02/16/24 documented as of this encounter
[2025-07-09 19:06] LABS: Microscopic, Urine URINE MICROSCOPIC (MICROSCOPIC)
[2025-07-09 19:16] LABS: Bilirubin,Urine Negative (Negative); Color,Urine YELLOW (Yellow); Glucose,Urine (UA) Negative (Negative); Ketones,Urine Negative (Negative); Leukocyte Esterase,Urine Negative (Negative); PH,Urine 7.5 (5.0-8.5); Protein,Urine Negative (Negative); Specific Gravity, Urine 1.020 (1.005-1.030); Urobilinogen,Urine 0.2 EU/dl (0.2)
[2025-07-09 19:54] LABS: Bacteria,Urine Trace /lpf
[2025-07-09 20:14] LABS: Hematocrit 45.8 % (42.0-52.0); Hemoglobin 15.5 g/dL (14.1-18.0); Immature Granulocytes % 1.1 %; Mean Corpuscular HGB Conc 33.8 g/dL (31.8-35.4); Mean Corpuscular Hemoglobin 28.3 pg (27.0-31.2); Mean Corpuscular Volume 83.7 fl (80-94); Nucleated Red Blood Cells % 0 %; Platelet Count 249 K/mm3 (142-424); Red Blood Count 5.47 M/mm3 (4.60-6.20); Red Cell Distribution Width-SD 39.4 fL; White Blood Count 14.3 K/mm3 (4.8-10.8)
--- NOTE | 2025-07-09 20:22 | US_ITS ---
PROCEDURE INFORMATION: Exam: US Scrotum Exam date and time: 07/09/2025 8:46 PM Age: 35 years old Clinical indication: Swelling, testicles or scrotum; Additional info: Scortal swelling and pain R/O torsion TECHNIQUE: Imaging protocol: Real-time ultrasound of the scrotum and contents with color Doppler and image documentation. COMPARISON: No relevant prior studies available. FINDINGS: Right testicle: Normal. 4.5 x 2.2 x 3.0 cm. No mass. Normal color Doppler and arterial waveforms. No torsion. Left testicle: Normal. 4.5 x 2.2 x 2.5 cm. No mass. Normal color Doppler and arterial waveforms. No torsion. Epididymides: Normal. Scrotum/soft tissues: There is diffuse scrotal wall edema. No loculated fluid collections. Small bilateral hydroceles are present. Small bilateral varicoceles. IMPRESSION: Normal appearance of the testicles and epididymides. Small bilateral hydroceles and varicoceles as well as diffuse scrotal wall edema noted.
[2025-07-09 20:36] LABS: Albumin Level 4.6 g/dl (3.5-5.0); Chloride 105 mmol/L (98-107); Potassium 4.5 mmoL/L (3.5-5.1); Sodium 137 mmol/L (136-145)
[2025-07-09 20:39] LABS: Alanine Aminotransferase 18 U/L (12-78); Albumin/Globulin Ratio 1.4 (1.1-1.8); Alkaline Phosphatase 79 U/L (38-126); Anion Gap 13.5 mEq/L (5-15); Aspartate Amino Transferase 26 U/L (17-59); Bilirubin,Total 0.4 mg/dl (0.2-1.3); Blood Urea Nitrogen 22 mg/dl (9-20); Carbon Dioxide 23 mmol/L (22.0-30.0); Creatinine Clearance Estimated 105 mL/min (50-200); Creatinine,Serum 1.30 mg/dl (0.66-1.25); Estimated Glomerular Filt Rate 62 ml/min (>60); GFR (African American) 75 ML/MIN (>60); Globulin 3.3 g/dL (1.3-3.2); Total Protein,Serum 7.9 g/dl (6.3-8.2)
[2025-07-09 20:40] LABS: Calcium 9.7 mg/dl (8.4-10.2); Glucose 150 mg/dl (74-100)
== END 2025-07-09 21:57 | disposition home or self-care (01) ==
PROVIDERS: Emergency Provider Student in an Organized Health Care Education/Training Program; PCP Family Medicine
DX: I86.1 Scrotal varices (principal); N43.3 Hydrocele, unspecified
CPT/HCPCS: 76870; 80053; 81001; 85025; 87491; 87591; 87661; 99284